=== PATIENT | female | born 1980 | race Two or more races ===

== ENCOUNTER 2021-01-23 11:40 | Emergency (ER) | payer OTHER ==
[~2021-01-23] VITALS: Ht 160 cm; Wt 63.5 kg
[2021-01-23] MEDS ORDERED: SKELAXIN800 MG PO (14:32)
[2021-01-23] MEDS ORDERED: KETO10TA2 PO (14:32)
[2021-01-23] MEDS ORDERED: SILVADENE20 GM TOP (14:35)
== END 2021-01-23 14:38 ==
LOC: ER 11:40
DX: T14.8XXA Other injury of unspecified body region, initial encounter (principal); V49.88XA Car occupant (driver) (passenger) injured in other specified transport accidents, initial encounter; Y93.89 Activity, other specified; Y92.488 Other paved roadways as the place of occurrence of the external cause

== ENCOUNTER 2022-04-12 09:30 | Emergency (ER) | payer OTHER ==
[~2022-04-12] VITALS: Ht 160 cm; Wt 63.5 kg
[~2022-04-12 09:30] MED LIST: KETO10TA2 PO; SILVADENE20 GM TOP; SKELAXIN800 MG PO
[2022-04-12] MEDS ORDERED: ONDANSETRON ODT4 MG PO (13:49)
[2022-04-12] MEDS ORDERED: OSEL75CA PO (13:49)
[2022-04-12] MEDS ORDERED: PEPCID AC20 MG PO (13:49)
== END 2022-04-12 13:54 ==
LOC: ER 09:30
DX: J06.9 Acute upper respiratory infection, unspecified (principal); K29.70 Gastritis, unspecified, without bleeding; J09.X2 Influenza due to identified novel influenza A virus with other respiratory manifestations

== ENCOUNTER 2022-09-02 12:47 | Emergency (ER) | payer OTHER ==
[~2022-09-02] VITALS: Ht 160 cm; Wt 63.5 kg
[~2022-09-02 12:47] MED LIST changes: +ONDANSETRON ODT4 MG PO; +OSEL75CA PO; +PEPCID AC20 MG PO
[2022-09-02] MEDS ORDERED: PEPCID AC20 MG PO (19:03)
[2022-09-02] MEDS ORDERED: LEVSIN/SL0.125 MG SL (19:03)
== END 2022-09-02 19:09 | disposition home or self-care (01) ==
LOC: ER 12:47
DX: K52.9 Noninfective gastroenteritis and colitis, unspecified (principal); R42 Dizziness and giddiness; R53.1 Weakness

== ENCOUNTER → 2025-02-26 | Emergency (ER) | payer OTHER ==
[~2025-02-26] VITALS: Ht 160 cm; Wt 63.5 kg
[~2025-02-26] MED LIST changes: +ACETAMINOPHEN 500 MG GEL..CAP PO ONE; +DOLOGESIC 500-1 EACH; +LEVSIN/SL0.125 MG SL
[2025-02-26 10:55] LABS: HEMOGLOBIN 12.2 g/dL (12.0-15.00); MEAN CORPUSCULAR HGB CONC 32.9 g/dl (32.0-36.0); PLATELET COUNT 139 K/uL (150-450); RED BLOOD COUNT 4.52 M/uL (4.00-6.00); RED CELL DISTRIBUTION WIDTH 14.6 % (11.5-14.5)
[2025-02-26 11:12] LABS: COVID-19 AG NEGATIVE (NEGATIVE); INFLUENZA A AG NEGATIVE (NEGATIVE)
== END | disposition home or self-care (01) ==
LOC: ER 09:20
PROVIDERS: General Practice
DX: B34.9 Viral infection, unspecified (principal); A92.8 Other specified mosquito-borne viral fevers; D75.839 Thrombocytosis, unspecified; Z20.822 Contact with and (suspected) exposure to COVID-19

== ENCOUNTER 2025-02-28 04:35 | Emergency (ER) | payer OTHER ==
[~2025-02-28] VITALS: Ht 160 cm; Wt 63.5 kg
[~2025-02-28 04:35] MED LIST changes: -ACETAMINOPHEN 500 MG GEL..CAP PO ONE; -DOLOGESIC 500-1 EACH
[2025-02-28] MEDS ORDERED: DOLOGESIC 500-1 EACH (04:45)
[2025-02-28] MEDS ORDERED: FAMOTIDINE/PF 20 MG/2 ML VIAL IV PUSH STA (05:09)
[2025-02-28] MEDS ORDERED: PROMETHAZINE HCL 50 MG/ML AMPUL IM STA (05:09)
[2025-02-28] MEDS ORDERED: ACETAMINOPHEN 500 MG GEL..CAP PO STA (05:10)
[2025-02-28] MEDS ORDERED: PROMETHAZINE HCL 50 MG/ML AMPUL IM ONE (05:12)
[2025-02-28] MEDS ORDERED: ACETAMINOPHEN 500 MG GEL..CAP PO ONE (05:12)
[2025-02-28] MEDS ORDERED: FAMOTIDINE/PF 20 MG/2 ML VIAL ONE (05:12)
[2025-02-28] MEDS ORDERED: 0.9 % SODIUM CHLORIDE 1,000 ML IV ONE (05:15)
[2025-02-28 06:36] LABS: HEMATOCRIT 35.5 % (36.0-45.00); HEMOGLOBIN 11.9 g/dL (12.0-15.00); MEAN CELL VOLUME 81.2 fL (80.00-100.00); MEAN CORPUSCULAR HEMOGLOBIN 27.1 pg (27.00-32.0); MEAN CORPUSCULAR HGB CONC 33.4 g/dl (32.0-36.0); PLATELET COUNT 136 K/uL (150-450); RED BLOOD COUNT 4.37 M/uL (4.00-6.00); RED CELL DISTRIBUTION WIDTH 14.7 % (11.5-14.5)
[2025-02-28 06:41] LABS: INR 1.03; PARTIAL THROMBOPLASTIN TIME 30.5 SECONDS (22.0-34.0); PROTHROMBIN TIME 11.2 SECONDS (9.0-11.5)
[2025-02-28 06:50] LABS: ALBUMIN 3.4 gm/dL (3.4-5.0); BILIRUBIN TOTAL 0.29 mg/dL (0.3-1.2); BILIRUBIN,CONJUGATED 0.11 mg/dL (0.0-0.2); BILIRUBIN,UNCONJUGATED 0.18 mg/dL (0.0-0.6); CALCIUM 8.6 mg/dL (8.5-10.1); CREATININE SERUM 0.5 mg/dL (0.55-1.02); GFR 134.03; GLOBULINA 3.8 G/DL (2.4-3.5); POTASSIUM 3.66 mEq/L (3.5-5.1); TOTAL PROTEIN 7.2 gm/dL (6.4-8.2)
[2025-02-28 07:27] VITALS: BP 90/57; O2SAT 98
[2025-02-28] MEDS ORDERED: BUTALB/ACETAMINOPHEN/CAFFEINE 1 TAB TABLET PO ONE ×2 (10:15→10:31)
[2025-02-28 11:15] LABS: URINE APPEARANCE Clear; URINE BILIRRUBIN Negative (NEGATIVE); URINE BLOOD Small; URINE COLOR Yellow; URINE GLUCOSE Negative (NEGATIVE); URINE KETONE 15 (NEGATIVE); URINE LEUKOCYTE Negative; URINE NITRATE Negative; URINE PROTEIN Trace (NEGATIVE); URINE UROBILINOGEN 0.2 E.U./dl
[2025-02-28 11:20] LABS: URINE BACTERIA 2062.2 uL (0.0-1933); URINE EPITHELIAL CELLS 96.8 uL (0.0-38.8); URINE RBC 25.1 uL (0.0-20.8); URINE WBC 13.9 uL (0.0-23.2)
[2025-02-28 11:58] LABS: URINE CAST 0.14 uL (0.0-1.40)
== END 2025-02-28 13:09 | disposition home or self-care (01) ==
LOC: ER 04:35
PROVIDERS: General Practice
DX: A90 Dengue fever [classical dengue] (principal); R11.10 Vomiting, unspecified; E86.0 Dehydration